=== PATIENT | male | born 1965 | race Caucasian/White ===

== ENCOUNTER 2019-02-19 17:18 | Emergency (ER) | payer OTHER, BC ==
[~2019-02-19] VITALS: Ht 188 cm; Wt 112.0 kg
[2019-02-19 17:34] VITALS: BP_SYST 144
--- NOTE | 2019-02-19 17:34 | NUR ---
Patient to ER bed 04 to gown for evaluation. Side rails up.
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
[2019-02-19] MEDS ORDERED: KETOROLAC TROMETHAMINE 60 MG/2 ML VIAL IM ONE (17:45)
--- NOTE | 2019-02-19 17:45 | NUR ---
Dr Rouse at bedside examining patient
--- NOTE | 2019-02-19 19:07 | NUR ---
Patient given written and verbal discharge instructions and verbalizes understanding. ER MD discussed with patient the results and treatment provided. Patient in stable condition. ID arm band removed. Rx of Naprosyn given. Patient educated on pain management and to follow up with PMD. Pain Scale 2/10. Opportunity for questions provided and answered. Medication side effect fact sheet provided.
== END 2019-02-19 19:07 | disposition home or self-care (01) ==
LOC: SED 17:18
DX: S20.219A Contusion of unspecified front wall of thorax, initial encounter (principal); V45.9XXA Unspecified car occupant injured in collision with railway train or railway vehicle in traffic accident, initial encounter; Y92.413 State road as the place of occurrence of the external cause; Y93.89 Activity, other specified; Y99.8 Other external cause status
CPT/HCPCS: 71045; 71120; 96372; 99283; J1885